=== PATIENT | female | born 2000 | race Caucasian/White ===

== ENCOUNTER 2021-09-18 13:20 | Emergency (ER) | payer OTHER, SELFPAY ==
--- NOTE | ~2021-09-18 | CT_ITS ---
EXAMINATION: CT abdomen pelvis w con DATE: 09/18/2021 15:17 INDICATION: RUQ pain, vomiting x1 month TECHNIQUE: Computed tomography (CT) of the abdomen and pelvis was performed with 100 mL Omnipaque-350 intravenous contrast. Automated exposure control and iterative reconstruction technique were employe d. The dose-length product was 1426.87 mGy-cm. COMPARISON: None. FINDINGS: Lower thorax: Bibasilar atelectasis. Liver: Enlarged liver. Biliary/Gallbladder: Gallbladder is normal. No bile duct dilation. Pancreas: No mass or duct dilation. Spleen: Normal. Adrenals:No mass. Kidneys: No mass, stone, or hydronephrosis. GI tract: No small or large bowel dilation. Normal appendix. Mesentery/Peritoneum: No ascites, mass, or free air. Retroperitoneum: No mass. Pelvis: Pelvic organs are within normal limits. Soft Tissues: Soft tissues and body wall unremarkable. Bones: No acute osseous finding. IMPRESSION: Hepatomegaly. Otherwise no acute abdominopelvic process detected. Reviewed, dictated and finalized at location K.
[2021-09-18 13:29] VITALS: BP 135/79; PULSE 74; RESP 16; TEMP 36.9; O2SAT 100
--- NOTE | 2021-09-18 13:48 | ED.NAVMDI ---
HPI - Nausea/Vomiting/Diarrhea General Chief complaint: Nausea/Vomiting/Diarrhea Stated complaint: Nausea and vomiting, dizziness Time Seen by Provider: 09/18/21 13:22 History of Present Illness HPI Narrative: 21-year-old female presented the emergency room for evaluation of nausea and vomiting x1 month. Patient states that she becomes nauseated following eating every meal. Also complains of mild right upper quadrant pain. Patient was seen at her primary care physician office last week, and has a barium swallow and right upper quadrant ultrasound ordered. Patient denies any diarrhea or constipation. Related Data Home Medications Medication Instructions Recorded Confirmed Xolair 09/18/21 Allergies Allergy/AdvReac Type Severity Reaction Status Date / Time No Known Allergies Allergy Verified 09/18/21 13:32 Review of Systems Review of Systems: CONSTITUTIONAL: Denies fever, chills, or sweats. EYES: Denies visual changes, redness, or discharge. ENT: Denies rhinorrhea, congestion, sore throat, or otalgia. CARDIOVASCULAR: Denies chest pain, palpitations, or edema. RESPIRATORY: Denies cough or dyspnea. GASTROINTESTINAL: Reports abdominal pain and nausea GENITOURINARY: Denies dysuria or hematuria. SKIN: Denies rash or itching. MUSCULOSKELETAL: Denies back pain, joint pain, or myalgia. NEUROLOGIC: Denies headache, numbness, dizziness, or weakness. PSYCHIATRIC: Denies anxiety or depression. Exam Narrative: GENERAL: Well-appearing, well-nourished, no physical limitations, and in no acute distress. HEAD: Normocephalic, atraumatic. EYES: Conjunctivae normal, PERRLA and EOMI. CHEST: Clear to auscultation. No respiratory distress. No wheezes rales or rhonchi. No tenderness. HEART: Regular rate and rhythm. No murmur heard. Normal peripheral pulses. ABDOMEN: Soft, right upper quadrant tenderness, morbid obesity, normal active bowel sounds. BACK: No CVA tenderness EXTREMITIES: Normal range of motion. No edema. No clubbing or cyanosis SKIN: Warm, dry, no rash. No noted wounds NEURO: No focal deficits. Alert and oriented x3. MAEW. CN's II-XI intact bilaterally, normal gait PSYCH: Cooperative. Normal mood and affect. Course Vital Signs Vital signs: Vital Signs Temperature 36.9 C 09/18/21 13:29 Pulse Rate 74 09/18/21 13:29 Respiratory Rate 16 09/18/21 13:29 Blood Pressure 135/79 09/18/21 13:29 Pulse Oximetry 100 09/18/21 13:29 Oxygen Delivery Room Air 09/18/21 13:29 Temperature 36.9 C 09/18/21 13:29 Pulse Rate 74 09/18/21 13:29 Respiratory Rate 16 09/18/21 13:29 Blood Pressure 135/79 09/18/21 13:29 Pulse Oximetry 100 09/18/21 13:29 Oxygen Delivery Room Air 09/18/21 13:29 MDM - Nausea/Vomiting/Diarrhea MDM Narrative Medical decision making narrative: 21-year-old female presented the emergency room for evaluation of nausea and vomiting for approximately 1 month. Patient had already seen her primary care physician and has a outpatient abdominal ultrasound and barium swallow test scheduled. CT scan of the abdomen showed no acute intra-abdominal abnormalities. CBC and CMP were unremarkable. There is bacteria and hematuria on her urine studies patient likely has a urinary tract infection. Will have patient follow-up with GI for further evaluation. Lab Data Result diagrams: 09/18/21 14:00 09/18/21 14:31 Labs: Lab Results 09/18/21 09/18/21 09/18/21 Range/Units 13:57 14:00 14:31 WBC 7.5 (4.5-10.0) K/mm3 RBC 4.70 (4.2-5.4) M/mm3 Hgb 14.2 (12.0-15.0) g/dL Hct 42.7 (37.0-47.0) % MCV 90.9 (80-100) fl MCH 30.2 (26-34) pg MCHC 33.3 (32-36) g/dl RDW 13.0 (11.5-14.5) % Plt Count 372 (150-375) k/mm3 MPV 10.5 H (7.4-10.4) fl Immature Gran % (Auto) 0.3 (0-0.5) % Neut % (Auto) 68.6 (45.5-73.1) % Lymph % (Auto) 23.0 (18.3-44.2) % [place] % (Auto) 6.6 (2.6-8.5) % Eos % (Auto) 0.8 (0-
[2021-09-18] MEDS: SODIUM CHLORIDE 0.9% IV 1,000 ML 999 ML IV CONT (14:05)
[2021-09-18] MEDS: ONDANSETRON INJ 4 MG/2 ML VIAL IV PUSH (14:05)
[2021-09-18 14:13] LABS: Basophils Absolute Auto 0.1 K/mm3 (0.0-0.1); Basophils Percent Auto 0.7 % (0.2-1.2); Eosinophils Absolute Auto 0.1 K/mm3 (0-0.3); Eosinophils Percent Auto 0.8 % (0-4.4); Hematocrit 42.7 % (37.0-47.0); Hemoglobin 14.2 g/dL (12.0-15.0); Immature Granulocyte Absolute 0.02 K/mm3 (0.00-0.031); Immature Granulocyte Percent A 0.3 % (0-0.5); Lymphocytes Absolute Auto 1.71 K/mm3 (0.9-3.2); Mean Corpuscular HGB Conc 33.3 g/dl (32-36); Mean Corpuscular Hemoglobin 30.2 pg (26-34); Mean Corpuscular Volume 90.9 fl (80-100); Mean Platelet Volume 10.5 fl (7.4-10.4); Monocytes Absolute Auto 0.5 K/mm3 (0.1-0.6); Monocytes Percent Auto 6.6 % (2.6-8.5); Neutrophils Absolute Auto 5.1 K/mm3 (1.3-6.7); Neutrophils Percent Auto 68.6 % (45.5-73.1); Platelet Count Result 372 k/mm3 (150-375); White Blood Count 7.5 K/mm3 (4.5-10.0)
[2021-09-18 14:15] LABS: Appearance Urine Clear (Clear); Bilirubin Urine Negative (Negative); Blood Urine 2+ (Negative); Color Urine Yellow (Yellow); Glucose Urine UA Negative (Negative); Ketones Urine Negative (Negative); Leukocyte Esterase Ur 2+ LEU/UL (Negative); Nitrate Urine Negative (Negative); Protein Urine Negative (Negative); Specific Grav Ur 1.025 (1.001-1.035)
[2021-09-18 14:24] LABS: Bacteria Urine Trace /hpf; Mucus Urine Few /lpf; Squamous Epithelial Cell Urine Few /hpf (Few); WBC Urine 21-30 /hpf
[2021-09-18 14:25] LABS: Add Urine Microscopic? YES
[2021-09-18 15:05] LABS: Alanine Aminotransferase 20 U/L (6-35); Albumin Level 4.3 g/dL (3.5-5.1); Alkaline Phosphatase 55 U/L (38-126); Anion Gap 7 mmol/L (8-16); Aspartate Amino Transferase 19 U/L (14-36); Bilirubin,Total 0.5 mg/dL (0.2-1.3); Blood Urea Nitrogen 6 mg/dL (7-17); Calcium 8.4 mg/dL (8.4-10.2); Carbon Dioxide 26 mmol/L (22-30); Chloride 106 mmol/L (98-107); Estimated CRCL calculation 113 ml/min; Estimated Glomerular Filt Rate > 60; Glucose 90 mg/dL (65-110); Lipase 40 U/L (23-300); Potassium 3.9 mmol/L (3.4-5.0); Sodium 139 mmol/L (137-145)
[2021-09-18 15:48] VITALS: BP 120/75; PULSE 59; RESP 18; O2SAT 100
== END 2021-09-18 15:50 | disposition home or self-care (01) ==
PROVIDERS: Emergency Medicine; Emergency Provider Nurse Practitioner Family; PCP Physician Assistant
DX: N39.0 Urinary tract infection, site not specified (principal); R10.9 Unspecified abdominal pain; R11.0 Nausea
CPT/HCPCS: 36415; 74177; 80053; 81001; 81025; 83690; 85025; 87086; 87088; 96361; 96374; 99284; J2405; J7030; Q9967

== ENCOUNTER 2021-10-01 10:33 | Outpatient (CLI) | payer OTHER, SELFPAY ==
--- NOTE | ~2021-10-01 | XR_ITS ---
EXAMINATION: XR UGIAC wo kub DATE: 10/01/2021 11:32 INDICATION: Nausea with vomiting TECHNIQUE: The patient drank thick barium, gas-producing crystals, and thin barium. A total of 525 fl uoroscopic images of the esophagus, stomach, and proximal small bowel were obtained. Fluoroscopy expo sure time was 1.1 minutes. COMPARISON: None. FINDINGS: The esophagus is normal without mass or stricture. Esophageal motility is normal. There is no hiatal hernia. There was no gastroesophageal reflux with provocative maneuvers. The stomach and pr oximal small bowel are normal. IMPRESSION: 1. Normal upper GI study. Reviewed, dictated and finalized at location A. IMPRESSION: 1. Normal upper GI study.
== END 2021-10-01 10:34 | disposition home or self-care (01) ==
PROVIDERS: PCP Physician Assistant; Visit Provider Physician Assistant
DX: R11.2 Nausea with vomiting, unspecified (principal)
CPT/HCPCS: 74246

== ENCOUNTER → 2021-10-08 08:52 | Outpatient (CLI) | payer OTHER, SELFPAY ==
--- NOTE | ~2021-10-08 | US_ITS ---
EXAMINATION: US right upper quadrant DATE: 10/08/2021 09:25 INDICATION: Nausea and vomiting. TECHNIQUE: Multiple grayscale and Doppler ultrasound images of the abdomen were obtained. COMPARISON: CT abdomen and pelvis 09/18/2021 FINDINGS: The visualized portions of the head of the pancreas are normal. There is diffuse hepatic st eatosis. There is normal flow in main portal vein. The gallbladder is normal in size. No gallstones o r gallbladder wall thickening. There was no sonographic Ramos sign. The common duct is normal and me asures 4 mm. IMPRESSION: 1. Diffuse hepatic steatosis. Reviewed, dictated and finalized at location A.
== END ==
PROVIDERS: PCP Physician Assistant; Visit Provider Physician Assistant
DX: R11.2 Nausea with vomiting, unspecified (principal); K76.0 Fatty (change of) liver, not elsewhere classified
CPT/HCPCS: 76705

== ENCOUNTER 2021-10-24 12:49 | Outpatient (CLI) | payer OTHER, SELFPAY ==
--- NOTE | ~2021-10-24 | NM_ITS ---
EXAMINATION: NM hepatobiliary wo pharm DATE: 10/24/2021 15:53 INDICATION: Nausea and vomiting. COMPARISON: Ultrasound abdomen 10/08/2021 TECHNIQUE: 4.8 mCi Tc-99m mebrofenin (Choletec) was administered intravenously. Scintigraphic images of the abdomen were obtained for one hour. Then, the patient drank 8 oz Ensure, and imaging was cont inued for 60 minutes. FINDINGS: There is normal clearance of radiotracer from the blood pool. There is homogeneous tracer u ptake by the liver. Activity progresses to the bowel and gallbladder. Gallbladder ejection fraction (GBEF) was 27%. Note that with this technique, normal GBEF >= 33%. IMPRESSION: 1. Low gallbladder ejection fraction, consistent with gallbladder dysfunction and/or chronic cholecy stitis. Reviewed, dictated and finalized at location A. IMPRESSION: 1. Low gallbladder ejection fraction, consistent with gallbladder dysfunction and/or chronic cholecystitis.
== END 2021-10-24 12:50 | disposition home or self-care (01) ==
PROVIDERS: PCP Physician Assistant; Visit Provider Physician Assistant
DX: R11.2 Nausea with vomiting, unspecified (principal)
CPT/HCPCS: 78226; A9537

== ENCOUNTER 2021-11-12 07:53 | Outpatient (CLI) | payer OTHER, SELFPAY ==
[2021-11-12 08:54] LABS: Alanine Aminotransferase 23 U/L (6-35); Albumin Level 4.8 g/dL (3.5-5.1); Alkaline Phosphatase 49 U/L (38-126); Amylase 56 U/L (30-110); Aspartate Amino Transferase 26 U/L (14-36); Bilirubin,Total 0.7 mg/dL (0.2-1.3); Lipase 40 U/L (23-300)
== END 2021-11-12 07:54 | disposition home or self-care (01) ==
LOC: ANHSURGERY 07:56
PROVIDERS: PCP Physician Assistant; Visit Provider Surgery
DX: Z01.812 Encounter for preprocedural laboratory examination (principal); K81.1 Chronic cholecystitis
CPT/HCPCS: 36415; 80076; 82150; 83690; 86850; 86900; 86901

== ENCOUNTER 2021-11-13 02:18 | Day surgery (SDC) | payer OTHER, SELFPAY ==
[2021-11-06 15:43] VITALS: BMI 42.5
--- NOTE | 2021-11-06 15:53 | PC.NURSE ---
Report to the Outpatient Waiting Room, entrance under the green pavilion located off [facility], at time 10:30 on date 11/13/21. OR Time: 12:30. Time changes happen often and if your time is changed the preop area will call you the afternoon before. - You and your visitor will be asked to self-screen and do not enter if you have any COVID symptoms. - Only one visitor and NO children visitors are allowed at this time. - The patient visitor is requested to leave or wait in car when not with patient due to restrictions. - A mask is required within the hospital. Patients may have clear liquids (water, carbonated beverages, clear teas, apple juice) until 3 hours prior to surgery (9:30) with a maximum of 20 ounces. - No food from midnight until time of surgery Take the following medications with a SIP of water the morning of surgery: NONE Medications to discontinue per physician: N/A Date to take last dose: N/A Please no make-up, nail sinhala, hairspray, perfume, deodorant, or body powder the day of surgery. No jewelry (including any body piercings) or valuables the day of surgery, leave them at home. Please take a shower or bath the night before, or the morning of, surgery with an antibacterial soap (HIBICLENS). Wear comfortable, loose fitting clothing. - Jewelry must be removed prior to entering the operating room. Rings and piercings that are not removed may be cut off. - The hospital will not accept responsibility for valuables. - Please leave all valuables, including medications, at home the day of surgery. If you are going home after surgery, a licensed skidder driver must drive you home. - NO public transportation without another adult. - We recommend that an adult stay with you for 24 hours following discharge. - We also recommend that you do not drive, make important decision, drink alcoholic beverages, or take any drugs that were not prescribed by your health care provider for at least 24 hours after your discharge time. Follow any additional instructions given to you from your surgeon. If you or anyone in your household have experienced Covid symptoms in the past week, please notify your surgeon or the nurse liaison at the phone number below for possible testing. Telephone instructions given to PT - KAMI BARAJAS and asked if any additional questions and then verbalized understanding. Patient advised to call surgeon office or pre surgery nurse liaison [phone] if any additional questions.
--- NOTE | 2021-11-12 12:29 | P.PNAN_ITS ---
Anes - Initial Pre Proc Eval Procedure: Operation Date: 11/13/21 11:15 Proposed Procedures p Laparoscopic Cholecystectomy - Anuel Pacheco MD Date/Time: 11/12/21 12:29 Surgeon: Anuel Pacheco MD Pre Op Diagnosis: chronic cholecystitis Patient Data Age: 21 Gender: F Height: 1.6 m Weight: 108.86 kg Allergies Allergy/AdvReac Type Severity Reaction Status Date / Time No Known Allergies Allergy Verified 11/06/21 15:42 Home Medications Medication Instructions Recorded Confirmed Type levonorgestrel 17.5 mcg/24 hrs 1 device intrauterine ONCE 10/30/21 11/06/21 History (5yrs) 19.5mg intrauterine device (Kyleena) ondansetron 4 mg disintegrating 4 mg PO Q8H 10/30/21 11/06/21 History tablet omalizumab 150 mg/mL subcutaneous 150 mg subcut ONCE 11/06/21 11/06/21 History syringe (Xolair) Patient hx anesthesia problems: none Family hx anesthesia problems: none Results Review: All pre-operative results and documents have been reviewed as part of the pre- operative evaluation. [facility] Past Medical History Medical History (Updated 11/12/21 @ 12:30 by Harris Langford MD) Anxiety Depression Morbid obesity with BMI of 40.0-44.9, adult Surgical History Surgical History H/O wisdom tooth extraction Family History Family History Other Diabetes mellitus Heart disease Hypertension Social History Social History Smoking status: Current every day smoker Tobacco type: e-cigarettes/vaping Alcohol intake: current Drinks per week: 5 Alcohol use details: Occasionally Substance use: current Substance use type: marijuana Living arrangements: with roommate(s) Spiritual care concerns: No Anes - Eval Final PreProcedure Day of Procedure 11/12/21 12:29 Patient weight: morbidly obese Heart: regular rate and rhythm Lungs: clear to auscultation and normal air movement Airway: Mallampati scale class II Neurological: alert and oriented Last oral intake: >/= 8 hours ASA classification: III Emergent: no Anesthetic plan: proceed Anesthesia type and monitoring: general ETT Results Review: All pre-operative results and documents have been reviewed as part of the pre- operative evaluation. Informed Consent: The patient's anesthetic plan and its attendant risks and benefits were discussed with the patient/family/POA. Questions were solicited and answers provided to the satisfaction of the patient/family/POA.
[2021-11-13] VITALS (11 sets, daily range): BP systolic 103–123; BP diastolic 60–81; PULSE 67–101; RESP 14–20; TEMP 36.3–36.6; O2SAT 96–100
[2021-11-13] MEDS: LACTATED RINGERS 1,000 ML 30 ML IV CONT ×3 (09:30→15:00)
[2021-11-13] MEDS: KETOROLAC 15 MG/ML VIAL (*BKC) IV PUSH (09:42)
[2021-11-13] MEDS: ACETAMINOPHEN 500 MG TABLET 1000 MG PO (09:42)
--- NOTE | 2021-11-13 09:56 | WPDHPUPDATE1 ---
History and Physical Update Update Date/Time: 11/13/21 09:56 History and Physical has been reviewed, including an updated exam of the patient. There are NO changes in the patient's condition. Risks, benefits, and alternatives have been discussed and questions answered. Patient agrees to proceed with procedure.
[2021-11-13] MEDS: SCOPOLAMINE 1.5 MG PATCH TRANSDERM (10:13)
[2021-11-13] MEDS: ceFAZolin 2 GM/D5W 50 ML 2 GM/50 ML BAG IVPB (11:42)
[2021-11-13] MEDS: BUPIVACAINE/EPINEPHRINE 0.25% 50 ML VIAL INFILTRATE (12:32)
--- NOTE | 2021-11-13 12:42 | P.OP_ITS ---
Procedure Note - Detailed Date of Procedure 11/13/21 Pre-op Diagnosis chronic cholecystitis Post-op Diagnosis Same Procedure Performed Laparoscopic cholecystectomy Surgeon Anuel Pacheco MD Rib Sawyer [facility] [place] [facility] Anesthesia General and Local (0.25% Marcaine with epinephrine) Indications Patient has had postprandial right upper quadrant abdominal pain with nausea specially after fatty meals. She had a negative gallbladder ultrasound but her HIDA scan showed a low gallbladder ejection fraction. She is taken to surgery now for laparoscopic cholecystectomy. Findings Mild chronic inflammation was noted. No stones were appreciated. No biliary ductal dilatation or liver abnormalities were noted. Description of Procedure The patient was taken to surgery and induced into general anesthesia. The abdomen is prepped draped. Trocars were placed in the usual fashion using applied Medical optical trocars and local anesthesia. The gallbladder was decompressed with a laparoscopic aspirator. The cholecystotomy was closed with a Vicryl endoloop. The gallbladder was then retracted anterosuperiorly. Dissection was carried out in the cholecystohepatic triangle. The cystic duct and cystic artery were dissected out very clearly. Cystic artery was very diminutive and was cauterized and divided. The gallbladder was dissected off the liver at its lower 3rd. Critical view was achieved. We securely clipped and divided the cystic duct. The gallbladder was then is dissected off the liver and freed completely. It was placed in an Endo-Catch bag and retrieved through the 10 11 epigastric trocar site. The epigastric trocar was then replaced. I reviewed the gallbladder fossa and right upper quadrant. Some additional cautery on the gallbladder fossa was carried out. I then irrigated and suctioned the right upper quadrant. All looked good with no evidence of bleeding or bile leakage. We then evacuated CO2 and removed the trocar sleeves. Skin wounds were closed with subcuticular 4-0 Monocryl skin suture. The wounds were dressed with Exofin surgical adhesive. Patient was awakened and taken to recovery in good condition. Sponge and needle counts were correct x2. Estimated Blood Loss -5 Drains No Packing No Pathology Yes (Gallbladder) Complications No immediate complications Condition Stable Disposition PACU [facility] Billing Surgery - Charge Forward: Surgery Billing (Laparoscopic cholecystectomy)
[2021-11-13] MEDS: fentaNYL CITRATE INJ (*CRX) 100 MCG/2 ML VIAL 25 MCG IV PUSH ×2 (13:09→13:39)
--- NOTE | 2021-11-13 13:23 | SUR.PHASEI ---
1322: Simple mask removed.
[2021-11-13] MEDS: ONDANSETRON INJ 4 MG/2 ML VIAL IV PUSH (13:30)
[2021-11-13] MEDS: oxyCODONE HCL (*CRX) 5 MG TAB IR PO (14:53)
[2021-11-13] MEDS: HALOPERIDOL LACTATE 5 MG/ML VIAL 1 MG IV PUSH (15:40)
== END 2021-11-13 16:10 | disposition home or self-care (01) ==
PROVIDERS: PCP Physician Assistant; Visit Provider Surgery
PROC: 0FT44ZZ Resection of Gallbladder, Percutaneous Endoscopic Approach (ICD-10-PCS; CPT 47562; principal; 2021-11-13 11:15)
DX: K81.1 Chronic cholecystitis (principal); F41.9 Anxiety disorder, unspecified; F32.A Depression, unspecified; E66.01 Morbid (severe) obesity due to excess calories; Z68.41 Body mass index [BMI] 40.0-44.9, adult; F17.290 Nicotine dependence, other tobacco product, uncomplicated; F12.90 Cannabis use, unspecified, uncomplicated
CPT/HCPCS: 47562; 36415; 80076; 82150; 83690; 86850; 86900; 86901; 88304; A9270; C1713; J0330; J0690; J1630; J1885; J2250; J2270; J2405; J2704; J2710; J3010; J7120

== ENCOUNTER 2021-12-05 14:01 | Emergency (ER) | payer OTHER, SELFPAY ==
[2021-12-05 14:13] VITALS: BP 117/76; PULSE 88; RESP 18; TEMP 36.7; O2SAT 99
--- NOTE | 2021-12-05 15:12 | ED.URI ---
HPI - URI/Sore Throat General Chief Complaint: Upper Respiratory Infection Stated Complaint: Cough,Congestion,Headache Source: patient Mode of arrival: ambulatory History of Present Illness HPI Narrative: This is a 21-year-old female who presented to our urgent care with complaints of a cough, sore throat, fever of 100-100.2 she has been taking ibuprofen and Tylenol at home to relieve her symptoms and also has complained about a headache and stuffiness that all started on Friday. The patient denies SOB, CP, palpitation, extremity numbness, lightheadedness, dizziness, constipation, diarrhea, chills, or fever. Related Data Home Medications Medication Instructions Recorded Confirmed levonorgestrel 17.5 mcg/24 hrs 1 device intrauterine ONCE 10/30/21 12/05/21 (5yrs) 19.5mg intrauterine device (Kyleena) Allergies Allergy/AdvReac Type Severity Reaction Status Date / Time No Known Allergies Allergy Verified 12/05/21 14:19 Review of Systems Review of Systems: A 14 organ system Review of Systems was performed and pertinent positives included in the HPI, otherwise remaining ROS is negative. [facility] Past Medical History Medical History (Updated 12/05/21 @ 15:06 by SIA Rico) Anxiety Depression Morbid obesity with BMI of 40.0-44.9, adult Surgical History Surgical History (Updated 11/29/21 @ 09:12 by ANGELINA Mccoy) H/O wisdom tooth extraction Hx laparoscopic cholecystectomy 11/13/21 Family History Family History Other Diabetes mellitus Heart disease Hypertension Social History Social History Smoking status: Current every day smoker Tobacco type: e-cigarettes/vaping Alcohol intake: current Drinks per week: 5 Alcohol use details: Occasionally Substance use: current Substance use type: marijuana Spiritual care concerns: No Exam Narrative: GENERAL: This is a well-nourished, well-developed patient, in no apparent distress. HEAD: normocephalic, atraumatic. EYES: PERRL. Sclera clear/white. Vision is grossly intact. EARS: External ears normal, auditory canals clear and without drainage, TMs normal without perforation. Hearing grossly intact. NOSE: External nose normal with no obvious nasal discharge, nares without redness, no rhinorrhea. THROAT: Mucous membranes moist, posterior pharynx clear. NECK: Neck supple, non-tender without lymphadenopathy, masses or thyromegaly. CARDIOVASCULAR: Regular rate and rhythm without murmurs, gallops, or rubs. RESPIRATORY: Clear to auscultation. Breath sounds equal bilaterally. No wheezes, rales, or rhonchi. GASTROINTESTINAL: Abdomen soft, non-tender, nondistended. Bowel sounds are active. No hepato-splenomegaly, or palpable masses. No guarding. SKIN: warm, intact with no suspicious lesions or rash, good texture and turgor. NEURO: awake, alert, and oriented to person, place and time. There were no obvious focal neurologic abnormalities. EXTREMITIES: Normal range of motion. No edema. No calf tenderness. Course Course Emergency Course: Patient tested positive for influenza A she will be discharged with Tamiflu, Tessalon Perles, and guaifenesin. Level of Care: Express Care Visit Vital Signs Vital signs: Vital Signs Temperature 98.0 F 12/05/21 14:13 Pulse Rate 88 12/05/21 14:13 Respiratory Rate 18 12/05/21 14:13 Blood Pressure 117/76 12/05/21 14:13 Pulse Oximetry 99 12/05/21 14:13 Oxygen Delivery Room Air 12/05/21 14:13 Temperature 98.0 F 12/05/21 14:13 Pulse Rate 88 12/05/21 14:13 Respiratory Rate 18 12/05/21 14:13 Blood Pressure 117/76 12/05/21 14:13 Pulse Oximetry 99 12/05/21 14:13 Oxygen Delivery Room Air 12/05/21 14:13 MDM - URI/Sore Throat Lab Data Labs: Influenza A Screen Positive Reference Ran
== END 2021-12-05 15:10 | disposition home or self-care (01) ==
PROVIDERS: Emergency Provider Nurse Practitioner; PCP Physician Assistant
DX: J10.1 Influenza due to other identified influenza virus with other respiratory manifestations (principal); F17.290 Nicotine dependence, other tobacco product, uncomplicated; E66.01 Morbid (severe) obesity due to excess calories; Z68.35 Body mass index [BMI] 35.0-35.9, adult
CPT/HCPCS: 87804; 99213; G0463

== ENCOUNTER 2022-04-20 10:42 | Outpatient (CLI) | payer OTHER, SELFPAY ==
--- NOTE | ~2022-04-20 | US_ITS ---
Pelvic ultrasound. Clinical History: Pelvic pain, IUD Technique: Realtime transabdominal and transvaginal scanning of the pelvis was performed. Color flow Doppler and Doppler spectral analysis were performed. Findings: The uterus is anteverted. The endometrial stripe has a thickness of 3 mm. IUD is in satisf actory position. No focal mass is identified. The right ovary measures 3.4 x 1.7 x 2.5 cm. No significant right ovarian or adnexal mass is seen. The left ovary is not visualized. No significant left ovarian or adnexal mass is seen. There is no evidence of free fluid in the cul de sac. Impression: IUD in satisfactory position. Left ovary not visualized. Reviewed, dictated and finalized at [facility]. MIC TILE INSTALLER Impression: IUD in satisfactory position. Left ovary not visualized.
== END 2022-04-20 10:43 ==
LOC: MICIMG 10:46
PROVIDERS: PCP Obstetrics & Gynecology; Visit Provider Obstetrics & Gynecology
DX: R10.31 Right lower quadrant pain (principal); Z97.5 Presence of (intrauterine) contraceptive device
CPT/HCPCS: 76830

== ENCOUNTER 2022-06-03 12:44 | Emergency (ER) | payer OTHER, SELFPAY ==
[2022-06-03 12:54] VITALS: BP 130/83; PULSE 84; RESP 18; TEMP 36.8; O2SAT 100
--- NOTE | 2022-06-03 12:56 | ED.ABDPAIN ---
HPI - Abdominal Pain General Stated Complaint: nausea,diarrhea Time Seen by Provider: 06/03/22 12:57 Source: patient and RN notes reviewed Mode of arrival: ambulatory Limitations: no limitations History of Present Illness HPI narrative: 22 y/o female presented for c/o n/v/d since this morning. Endorses 3 or 4 episodes vomiting, 2 or 3 episodes of diarrhea. States the nausea persists but she feels that the vomiting has subsided. States she ate at a wedding yesterday and is concerned for food poisoning. States she planned to let symptoms run the course, but work is requesting note for an excused absence. Denies worsening abdominal pain from baseline (hx PCOS), hematochezia, hematemesis, fever or chills. Denies sick contacts. Able to keep water down today, has not attempted to eat. Hx lap flores 11/2021 Related Data Home Medications Medication Instructions Recorded Confirmed levonorgestrel 17.5 mcg/24 hrs 1 device intrauterine ONCE 10/30/21 12/05/21 (5yrs) 19.5mg intrauterine device (Kyleena) Vitamin B-12 1,000 mcg DAILY 06/03/22 06/03/22 inositol 500 mg DAILY 06/03/22 06/03/22 metformin 500 mg tablet 500 mg DAILY 06/03/22 06/03/22 Allergies Allergy/AdvReac Type Severity Reaction Status Date / Time No Known Allergies Allergy Verified 06/03/22 12:58 Review of Systems Review of Systems: CONSTITUTIONAL: Denies body aches, fever, chills ENT: Denies rhinorrhea, congestion CARDIOVASCULAR: Denies chest pain, palpitations, or edema. RESPIRATORY: Denies cough or dyspnea. GASTROINTESTINAL: Endorses nausea, vomiting, diarrhea. Denies abdominal pain, hematochezia, melena, hematemesis GENITOURINARY: Denies dysuria, hematuria, or CVA tenderness. SKIN: Denies rash, itching, or wounds. MUSCULOSKELETAL: Denies back pain, joint pain, or myalgia. NEUROLOGIC: Denies headache, numbness, tingling, or weakness. All systems reviewed & are unremarkable except as noted in HPI and below PMFSH Past Medical History Medical History Anxiety Depression Morbid obesity with BMI of 40.0-44.9, adult Surgical History Surgical History H/O wisdom tooth extraction Hx laparoscopic cholecystectomy 11/13/21 Family History Family History Other Diabetes mellitus Heart disease Hypertension Social History Social History Smoking status: Current every day smoker Tobacco type: e-cigarettes/vaping Alcohol intake: current Drinks per week: 5 Alcohol use details: Occasionally Substance use: current Substance use type: marijuana Living arrangements: with roommate(s) Spiritual care concerns: No Comments At time of signature, I have reviewed and agree with nursing past medical, surgical, social and family history unless otherwise noted. Please see nursing chart for further information. There is no relevant family history pertinent to the presenting complaint Exam Narrative: GENERAL: mildly ill-appearing, in no acute distress. EYES: EOMI. Conjunctivae normal. ENT: Mucous membranes pink and moist. CHEST: No respiratory distress. Clear to auscultation. HEART: Regular rate and rhythm. No murmur appreciated. Normal peripheral pulses. ABDOMEN: abd soft, nondistended, normal active bowel sounds. Tender abdomen to lower quadrants she states r/t PCOS. No guarding, rebound tenderness, asymmetry EXTREMITIES: Normal range of motion. No edema. SKIN: Warm, dry, no rash. Capillary refill normal. Normal skin turgor. NEURO: No focal deficits. Alert and oriented x3. PSYCH: Normal affect. Course Course Emergency Course: Patient is aware of diagnosis, understands and agrees to treatment plan. Anticipatory guidance given. Patient agrees to follow-up as directed and is aware of reasons to seek care at the e
== END 2022-06-03 13:08 | disposition home or self-care (01) ==
PROVIDERS: Emergency Provider Nurse Practitioner Family; PCP Physician Assistant
DX: R11.2 Nausea with vomiting, unspecified (principal); R19.7 Diarrhea, unspecified; E28.2 Polycystic ovarian syndrome; E66.01 Morbid (severe) obesity due to excess calories; Z68.37 Body mass index [BMI] 37.0-37.9, adult; F17.290 Nicotine dependence, other tobacco product, uncomplicated; F12.90 Cannabis use, unspecified, uncomplicated
CPT/HCPCS: 99211; G0463

== ENCOUNTER 2023-04-02 14:04 | Emergency (ER) | payer MEDICAID, SELFPAY ==
[2023-04-02 14:11] VITALS: BP 114/82; PULSE 95; RESP 16; TEMP 37.1; O2SAT 99
--- NOTE | 2023-04-02 15:50 | ED.NAVMDI ---
HPI - Nausea/Vomiting/Diarrhea General Chief complaint: Nausea/Vomiting/Diarrhea Stated complaint: vomiting/14 weeks Time Seen by Provider: 04/02/23 15:47 Source: patient and family Mode of arrival: ambulatory Limitations: no limitations History of Present Illness HPI Narrative: 22 years old white female, 14 weeks presents with intermittent nausea and vomiting over the last 48 hours. She denies any diarrhea, fever, chills, abdominal pain, vaginal bleeding or discharge Related Data Home Medications Medication Instructions Recorded Confirmed levonorgestrel 17.5 mcg/24 hrs 1 device intrauterine ONCE 10/30/21 06/03/22 (5yrs) 19.5mg intrauterine device (Kyleena) Vitamin B-12 1,000 mcg DAILY 06/03/22 06/03/22 inositol 500 mg DAILY 06/03/22 06/03/22 metformin 500 mg tablet 500 mg DAILY 06/03/22 06/03/22 Allergies Allergy/AdvReac Type Severity Reaction Status Date / Time No Known Allergies Allergy Verified 06/03/22 12:58 Review of Systems Review of Systems: All systems reviewed & are unremarkable except as noted in HPI and below PMFSH Past Medical History Medical History Anxiety Depression Morbid obesity with BMI of 40.0-44.9, adult Surgical History Surgical History H/O wisdom tooth extraction Hx laparoscopic cholecystectomy 11/13/21 Family History Family History Other Diabetes mellitus Heart disease Hypertension Social History Social History Smoking status: Current every day smoker Tobacco type: e-cigarettes/vaping Alcohol intake: current Drinks per week: 5 Alcohol use details: Occasionally Substance use: current Substance use type: marijuana Living arrangements: with roommate(s) Spiritual care concerns: No Exam Narrative: General appearance: Well-developed, well-nourished Skin: Normal color Head: Normocephalic, nontraumatic Eyes: Clear conjunctiva ENT: Oropharynx normal, ears normal, nose normal Neck: Supple, nontender Chest and respiratory: Airway patent, no respiratory distress, no accessory muscle use Heart: Regular rate/rhythm Abdomen: Soft, nontender, no organomegaly, quiet bowel sounds Vascular: Normal peripheral pulses, normal capillary refill. Musculoskeletal: Normal range of motion, nontender back Neurologic: Alert and oriented ?3, [employer] is normal as tested, no gross motor deficit Course Vital Signs Vital signs: Vital Signs Temperature 37.1 C 04/02/23 14:11 Pulse Rate 95 04/02/23 14:11 Respiratory Rate 16 04/02/23 14:11 Blood Pressure 114/82 04/02/23 14:11 Pulse Oximetry 99 04/02/23 14:11 Oxygen Delivery Room Air 04/02/23 14:11 Temperature 36.6 C 04/02/23 17:00 Pulse Rate 84 04/02/23 17:00 Respiratory Rate 18 04/02/23 17:00 Blood Pressure 119/79 04/02/23 17:00 Pulse Oximetry 100 04/02/23 17:00 Oxygen Delivery Room Air 04/02/23 14:11 MDM - Nausea/Vomiting/Diarrhea MDM Narrative Medical decision making narrative: Patient is 14 weeks , came with nausea and vomiting, blood workup showed leukocytosis, high likely secondary to , urinalysis showed possible urinary tract infection, in the ED patient received 2 L of normal saline, 8 mg of Zofran with remarkable improvement, 1 g of Rocephin IV, discharged on amoxicillin. Differential Diagnosis Differential diagnosis: Likely other (Hyperemesis gravidarum, urinary tract infection, electrolyte imbalance, dehydration) Lab Data
[2023-04-02] MEDS: SODIUM CHLORIDE 0.9% IV 2,000 ML 999 ML IV CONT (15:58)
[2023-04-02] MEDS: ONDANSETRON INJ 4 MG/2 ML VIAL 8 MG IV PUSH (15:58)
[2023-04-02 16:12] LABS: Basophils Percent Auto 0.2 % (0.2-1.2); Eosinophils Percent Auto 0.1 % (0-4.4); Hematocrit 39.7 % (37.0-47.0); Hemoglobin 13.4 g/dL (12.0-15.0); Immature Granulocyte Percent A 0.6 % (0-0.5); Lymphocytes Absolute Auto 1.14 K/mm3 (0.9-3.2); Mean Corpuscular HGB Conc 33.8 g/dl (32-36); Mean Corpuscular Hemoglobin 30.7 pg (26-34); Mean Corpuscular Volume 90.8 fl (80-100); Mean Platelet Volume 10.7 fl (7.4-10.4); Monocytes Absolute Auto 0.5 K/mm3 (0.1-0.6); Monocytes Percent Auto 3.1 % (2.6-8.5); Neutrophils Absolute Auto 14.4 K/mm3 (1.3-6.7); Platelet Count Result 310 k/mm3 (150-375); Red Blood Count 4.37 M/mm3 (4.2-5.4); Red Cell Distribution Width 12.8 % (11.5-14.5); White Blood Count 16.2 K/mm3 (4.5-10.0)
[2023-04-02 16:25] LABS: Alanine Aminotransferase 29 U/L (6-35); Albumin Level 4.5 g/dL (3.5-5.1); Alkaline Phosphatase 46 U/L (38-126); Anion Gap 11 mmol/L (8-16); Aspartate Amino Transferase 32 U/L (14-36); Bilirubin,Total 0.6 mg/dL (0.2-1.3); Blood Urea Nitrogen 8 mg/dL (7-17); Calcium 9.9 mg/dL (8.4-10.2); Carbon Dioxide 19 mmol/L (22-30); Chloride 105 mmol/L (98-107); Estimated CRCL calculation 144 ml/min; Estimated Glomerular Filt Rate > 60; Glucose 104 mg/dL (65-110); Potassium 3.9 mmol/L (3.4-5.0); Sodium 135 mmol/L (137-145)
[2023-04-02 17:00] VITALS: BP 119/79; PULSE 84; RESP 18; TEMP 36.6; O2SAT 100
[2023-04-02] MEDS: BELLADONNA ALK/PHENOB ELIX 10 ML, MAG HYDROX/ALUMINUM HYD/SIMETH 30 ML, LIDOCAINE HCL 2... PO (17:53)
[2023-04-02 18:26] LABS: Appearance Urine Cloudy (Clear); Bacteria Urine Rare /hpf; Bilirubin Urine Negative (Negative); Blood Urine Negative (Negative); Color Urine Yellow (Yellow); Glucose Urine UA Negative (Negative); Ketones Urine 2+ mg/dL (Negative); Leukocyte Esterase Ur 1+ LEU/UL (Negative); Nitrate Urine Negative (Negative); Protein Urine Negative (Negative); RBC Urine 0-2 /hpf (0-2); Specific Grav Ur 1.023 (1.001-1.035); Squamous Epithelial Cell Urine Moderate /hpf (Few); pH Urine 5.5 (5.0-9.0)
[2023-04-02 18:31] LABS: Add Urine Microscopic? YES
[2023-04-02 19:07] VITALS: BP 102/64; PULSE 93; RESP 18; O2SAT 99
== END 2023-04-02 19:22 | disposition home or self-care (01) ==
PROVIDERS: Emergency Provider Emergency Medicine
DX: O21.0 Mild hyperemesis gravidarum (principal); Z3A.14 14 weeks gestation of pregnancy; O23.41 Unspecified infection of urinary tract in pregnancy, first trimester; N39.0 Urinary tract infection, site not specified
CPT/HCPCS: 36415; 80053; 81001; 85025; 87086; 96361; 96374; 96375; 99284; A9270; J0696; J2405; J7030

== ENCOUNTER 2023-04-03 15:24 | Observation (INO) | payer MEDICAID, SELFPAY ==
[2023-04-03 15:45] VITALS: BP 107/64; PULSE 83; RESP 18; TEMP 36.7; O2SAT 99
--- NOTE | 2023-04-03 16:44 | ED.NAVMDI ---
HPI - Nausea/Vomiting/Diarrhea General Chief complaint: Nausea/Vomiting/Diarrhea Stated complaint: nausea and vomitting Time Seen by Provider: 04/03/23 16:43 Source: patient History of Present Illness HPI Narrative: 22 YEARS OLD WHITE FEMALE, 14 WEEKS , 1, PARA 0 0 CAME TO THE EMERGENCY BECOME UNABLE TO KEEP ANYTHING DOWN SINCE LEFT TO THE ED LAST NIGHT. I HAVE SEEN THE PATIENT YESTERDAY AND WAS DISCHARGED WITH DIAGNOSIS OF HYPEREMESIS GRAVIDARUM AND POSSIBLE URINARY TRACT INFECTION PATIENT HAD 1 G OF ROCEPHIN IV PRIOR TO DISCHARGE YESTERDAY AND HAD A PRESCRIPTION OF AMOXICILLIN 875 MG B.I.D.. WHICH SHE DID NOT REFILL. PATIENT REPORT UNABLE TO KEEP ANYTHING DOWN THAT IS WHY SHE IS BACK. SHE DENIES ANY FEVER OR CHILLS OR ABDOMINAL PAIN OR VAGINAL BLEEDING OR DISCHARGE Related Data Home Medications Medication Instructions Recorded Confirmed levonorgestrel 17.5 mcg/24 hrs 1 device intrauterine ONCE 10/30/21 06/03/22 (5yrs) 19.5mg intrauterine device (Kyleena) Vitamin B-12 1,000 mcg DAILY 06/03/22 06/03/22 inositol 500 mg DAILY 06/03/22 06/03/22 metformin 500 mg tablet 500 mg DAILY 06/03/22 06/03/22 Allergies Allergy/AdvReac Type Severity Reaction Status Date / Time No Known Allergies Allergy Verified 06/03/22 12:58 Review of Systems Review of Systems: All systems reviewed & are unremarkable except as noted in HPI and below PMFSH Past Medical History Medical History Anxiety Depression Morbid obesity with BMI of 40.0-44.9, adult Surgical History Surgical History H/O wisdom tooth extraction Hx laparoscopic cholecystectomy 11/13/21 Family History Family History Other Diabetes mellitus Heart disease Hypertension Social History Social History Smoking status: Current every day smoker Tobacco type: e-cigarettes/vaping Alcohol intake: current Drinks per week: 5 Alcohol use details: Occasionally Substance use: current Substance use type: marijuana Living arrangements: with roommate(s) Spiritual care concerns: No Exam Narrative: GENERAL APPEARANCE: WELL-DEVELOPED, WELL-NOURISHED SKIN: NORMAL COLOR HEAD: NORMOCEPHALIC, NONTRAUMATIC EYES: CLEAR CONJUNCTIVA ENT: OROPHARYNX NORMAL, EARS NORMAL, NOSE NORMAL NECK: SUPPLE, NONTENDER CHEST AND RESPIRATORY: AIRWAY PATENT, NO RESPIRATORY DISTRESS, NO ACCESSORY MUSCLE USE HEART: REGULAR RATE/RHYTHM ABDOMEN: SOFT, NONTENDER, NO ORGANOMEGALY, QUIET BOWEL SOUNDS VASCULAR: NORMAL PERIPHERAL PULSES, NORMAL CAPILLARY REFILL. MUSCULOSKELETAL: NORMAL RANGE OF MOTION, NONTENDER BACK NEUROLOGIC: ALERT AND ORIENTED ?3, [employer] COUNSELOR IS NORMAL TESTED, NO GROSS MOTOR DEFICIT Course Consultations Consultation #1: DR VALDIVIA Date: 04/03/23 Time: 21:17 Vital Signs Vital signs: Vital Signs Temperature 36.7 C 04/03/23 15:45 Pulse Rate 83 04/03/23 15:45 Respiratory Rate 18 04/03/23 15:45 Blood Pressure 107/64 04/03/23 15:45 Pulse Oximetry 99 04/03/23 15:45 Oxygen Delivery Room Air 04/03/23 15:45 Temperature 36.7 C 04/03/23 15:45 Pulse Rate 83 04/03/23 15:45 Respiratory Rate 18 04/03/23 15:45 Blood Pressure 107/64 04/03/23 15:45 Pulse Oximetry 99 04/03/23 15:45 Oxygen Delivery Room Air 04/03/23 15:45 MDM - Nausea/Vomiting/Diarrhea MDM Narrative Medical decision making narrative: PATIENT PRESENTS WITH VOMITING DIFFERENTIAL DIAGNOSIS VIRAL GASTROENTERITIS, HYPEREMESIS GRAVIDARUM A, URIN
[2023-04-03] MEDS: SODIUM CHLORIDE 0.9% IV 2,000 ML 999 ML IV CONT (17:18)
[2023-04-03] MEDS: ONDANSETRON INJ 4 MG/2 ML VIAL (17:19)
[2023-04-03 17:27] LABS: Basophils Percent Auto 0.2 % (0.2-1.2); Eosinophils Percent Auto 0.1 % (0-4.4); Hematocrit 35.6 % (37.0-47.0); Hemoglobin 12.1 g/dL (12.0-15.0); Immature Granulocyte Absolute 0.05 K/mm3 (0.00-0.031); Immature Granulocyte Percent A 0.4 % (0-0.5); Lymphocytes Absolute Auto 1.39 K/mm3 (0.9-3.2); Lymphocytes Percent Auto 11.5 % (18.3-44.2); Mean Corpuscular Hemoglobin 30.5 pg (26-34); Mean Corpuscular Volume 89.7 fl (80-100); Mean Platelet Volume 10.7 fl (7.4-10.4); Monocytes Absolute Auto 0.6 K/mm3 (0.1-0.6); Monocytes Percent Auto 5.1 % (2.6-8.5); Neutrophils Percent Auto 82.7 % (45.5-73.1); Platelet Count Result 257 k/mm3 (150-375); Red Blood Count 3.97 M/mm3 (4.2-5.4); White Blood Count 12.1 K/mm3 (4.5-10.0)
[2023-04-03 17:37] LABS: Alanine Aminotransferase 26 U/L (6-35); Albumin Level 4.1 g/dL (3.5-5.1); Alkaline Phosphatase 51 U/L (38-126); Anion Gap 10 mmol/L (8-16); Aspartate Amino Transferase 24 U/L (14-36); Bilirubin,Total 0.5 mg/dL (0.2-1.3); Blood Urea Nitrogen 6 mg/dL (7-17); Calcium 9.2 mg/dL (8.4-10.2); Carbon Dioxide 20 mmol/L (22-30); Chloride 106 mmol/L (98-107); Estimated CRCL calculation 125 ml/min; Estimated Glomerular Filt Rate > 60; Glucose 90 mg/dL (65-110); Potassium 3.6 mmol/L (3.4-5.0); Sodium 136 mmol/L (137-145)
[2023-04-03 19:39] LABS: Influenza A QL RT-PCR Negative (Negative); Influenza B QL RT-PCR Negative (Negative); RSV RNA, RT-PCR Negative (Negative); SARS-CoV-2 RNA PCR Negative (Negative)
[2023-04-03 20:39] LABS: Appearance Urine Cloudy (Clear); Bacteria Urine Rare /hpf; Bilirubin Urine 1+ (Negative); Blood Urine Negative (Negative); Color Urine Dark Yellow (Yellow); Glucose Urine UA Negative (Negative); Ketones Urine 3+ mg/dL (Negative); Leukocyte Esterase Ur 1+ LEU/UL (Negative); Need Manual Microscopic Reviewed; Nitrate Urine Negative (Negative); Non Pathogenic Casts 0-2; Protein Urine Trace mg/dL (Negative); Specific Grav Ur 1.026 (1.001-1.035); Squamous Epithelial Cell Urine Many /hpf (Few); WBC Urine 21-50 /hpf
[2023-04-03 20:41] LABS: Add Urine Microscopic? YES
[2023-04-03] MEDS: ONDANSETRON INJ 4 MG/2 ML VIAL IV PUSH (21:29)
[2023-04-03] MEDS: SODIUM CHLORIDE 0.9% IV 1,000 ML 999 ML IV CONT (21:30)
[2023-04-03 21:31] VITALS: BP 110/70; PULSE 86; RESP 15; O2SAT 100
[2023-04-03 23:35] VITALS: BMI 43.4
[2023-04-03 23:40] VITALS: BP 124/77; PULSE 100; RESP 20; TEMP 37; O2SAT 100
--- NOTE | 2023-04-03 23:41 | ADMGEN ---
This patient, Summer Alejandre, was admitted to 3 [facility] Surg Room 300-01. Patient/family oriented to hospital policies and general routines including ID bracelet, bed and alarms, visiting hours, pain management, procedures, bathroom and other care routines, personal items, smoking policy, room service/diet, and visiting hours. Information on how to activate the Rapid Response Team has been discussed. Patient/Family are encouraged to report perceived risks to care and to ask questions if they do not understand what they are told or what they should do.
[2023-04-04] MEDS: ONDANSETRON INJ 4 MG/2 ML VIAL IV PUSH ×4 (00:07→20:22)
[2023-04-04] MEDS: DEXTROSE 5%/0.45% SOD CHL 1,000 ML 125 ML IV CONT ×2 (00:07→08:30)
[2023-04-04 05:57] VITALS: BP 100/60; PULSE 84; RESP 20; TEMP 36.7; O2SAT 98
[2023-04-04 07:47] VITALS: PULSE 88; O2SAT 97
[2023-04-04 14:00] VITALS: BP 100/62; PULSE 78; RESP 20; TEMP 36.4; O2SAT 100
--- NOTE | 2023-04-04 15:36 | PCCCNOTE ---
On 04/04/23, the student, [Arianna Hendrickson], provided care and completed [facility] documentation on this patient. I have reviewed the student's documentation and agree with the findings.
[2023-04-04] MEDS: DEXTROSE 5%/0.45% SOD CHL 1,000 ML 200 ML IV CONT ×2 (15:45→21:35)
[2023-04-04] MEDS: METOCLOPRAMIDE HCL INJ 10 MG/2 ML VIAL IV PUSH (17:08)
[2023-04-04] MEDS: FAMOTIDINE 20 MG/2 ML VIAL IV PUSH (20:22)
[2023-04-04 21:11] VITALS: BP 103/61; PULSE 85; RESP 18; TEMP 37; O2SAT 100
[2023-04-05] MEDS: ONDANSETRON INJ 4 MG/2 ML VIAL IV PUSH ×2 (02:32→08:18)
[2023-04-05] MEDS: DEXTROSE 5%/0.45% SOD CHL 1,000 ML 200 ML IV CONT ×2 (02:32→07:41)
[2023-04-05] MEDS: METOCLOPRAMIDE HCL INJ 10 MG/2 ML VIAL IV PUSH ×2 (05:44)
[2023-04-05 06:00] VITALS: BP 100/60; PULSE 89; RESP 18; TEMP 36.9; O2SAT 99
[2023-04-05] MEDS: FAMOTIDINE 20 MG/2 ML VIAL IV PUSH (08:18)
--- NOTE | 2023-04-05 10:09 | PM.IMHP ---
H&P: HPI History of Present Illness Date/Time: 04/04/23 17:20 Chief Complaint: Vomiting Narrative: 22 y/o G1 at 15 1/7 weeks gestation with a carrion IUP. She was feeling fine until a few days ago. She had sudden onset of nausea, vomiting, and diarrhea. No fevers. Nobody sick at home. Was seen in ED and it was thought best to admit her to the hospital for IVF and antiemetic therapy. I was notified at 1330 today that she was in the hospital. Review of Systems Review of Systems: All systems reviewed & are unremarkable except as noted in HPI and below PMFSH Past Medical History Medical History Anxiety Depression Morbid obesity with BMI of 40.0-44.9, adult Surgical History Surgical History H/O wisdom tooth extraction Hx laparoscopic cholecystectomy 11/13/21 Family History Family History Other Diabetes mellitus Heart disease Hypertension Social History Social History Smoking status: Former smoker Tobacco type: e-cigarettes/vaping Alcohol intake: former Drinks per week: 5 Alcohol use details: Occasionally Substance use: former Substance use type: marijuana Do You Feel Safe in your Home?: Yes Lack of Transportation: No Lack of Food: Never True Current Housing: I Have Housing Concerned About Future Housing: No Difficulty Paying Gas/Electric Bills: No Difficulty Paying for Meds: No Currently Unemployed: No Education: High School Diploma/GED Difficulty w/ Childcare or Family Care: No Living arrangements: with roommate(s) Spiritual care concerns: No Meds Home Medications and Allergies Home Medications Medication Instructions Recorded Confirmed Type Classic 1 tablet PO DAILY 04/03/23 04/03/23 History famotidine 20 mg tablet (Pepcid) 20 mg PO BID #60 tabs 04/05/23 Rx ondansetron HCl 4 mg tablet 4 mg PO Q4H PRN Nausea And 04/05/23 Rx Vomiting #20 tabs promethazine 12.5 mg tablet 12.5 mg PO Q6H PRN nausea and 04/05/23 Rx vomiting #30 tabs Allergies Allergy/AdvReac Type Severity Reaction Status Date / Time No Known Allergies Allergy Verified 06/03/22 12:58 Vital Signs Vital Signs - 24 hr 04/04/23 14:00 04/04/23 21:11 04/05/23 06:00 Temperature 36.4 C L 37.0 C 36.9 C Pulse Rate 78 85 89 Respiratory Rate 20 18 18 Blood Pressure 100/62 103/61 100/60 Pulse Oximetry 100 100 99 Oxygen Delivery 04/05/23 08:20 Temperature Pulse Rate Respiratory Rate Blood Pressure Pulse Oximetry Oxygen Delivery Room Air Exam Const: Orientation/consciousness: patient oriented x3 Other: Well-developed, well-nourished female in no acute distress. Neck: Thyroid: thyroid normal Lymphatic: no lymphadenopathy noted (in neck, axilla or inguinal nodes) Resp: Effort & Inspection: normal respiratory effort Auscultation: clear to auscultation bilaterally Cardio: Rate: regular rate Rhythm: regular rhythm Heart sounds: S1 normal heart sound present and S2 normal heart sound present GI: Other: ABD: Soft, nontender, nondistended. Obese. Uterine fundus palpable above the pubic symphysis. No guarding or rebound tenderness. No hepatosplenomegaly. : General: Yes no CVA tenderness Other: Deferred. Back/Spine/Pelvis: Back: no CVA tenderness Skin: General skin exam: normal color and no rashes or lesions noted Neuro: General: patient oriented x3 Extrem: Other: Extremities: nontender with no edema Psych: Mental Status: mental status grossly normal Affect: normal affect Assessment and Plan Assessment and plan (1) Viral gastroenteritis: Code(s): A08.4 - Viral intestinal infection, unspecified Status: Acute Assessment and Plan: A: IUP at 15 1/7 weeks gestation
--- NOTE | 2023-04-05 10:10 | PM.OBPNVD ---
OB - PN: Subj Subjective Date/time seen: 04/05/23 10:10 Narrative: Nausea much better. She says the Reglan made her agitated yesterday. Would like to go home. OB - PN: Obj Data Labs 04/03/23 17:20 04/03/23 17:20 OB - PN A/P Plan Comments: A: Gastroenteritis complicating , clinically better after IV hydration and antiemetics. Also being covered for a possible UTI, culture still pending. P: Home on Zofran, add Phenergan as needed. Imodium for diarrhea OK. F/u next week as scheduled in office. Exam Narrative: AVSS I/O OK ABD soft, nontender, gravid. EXT nontender
--- NOTE | 2023-04-05 10:23 | PM.DS ---
DS: Admitting Diagnosis Discharge Date 04/05/23 Admitting Diagnosis IUP at 15 2/7 weeks Gastroenteritis, likely viral DS: Discharge Diagnosis Discharge Diagnosis (1) : Code(s): Z34.90 - Encounter for supervision of normal , unspecified, unspecified trimester Status: Acute (2) Viral gastroenteritis: Code(s): A08.4 - Viral intestinal infection, unspecified Status: Acute DS: Summary Hospital Course Hospital Course: Admitted for IVF and antiemetic therapy. Feels better on 04/05, wanting to go home. Time Spent with Patient Time attestation: Total time spent providing and/or coordinating discharge services: Discharge Plan Discharge Attending physician on discharge: Jorge Alberto Farrell Consulting providers: Jorge Alberto Farrell Discharging Clinician: Jorge Alberto Farrell Patient Disposition: Home, Self-Care Activity: as tolerated Diet: as tolerated Discharge Instructions: Call or return if temperature above 100.4? F, increased abdominal pain, vaginal bleeding or any new problems. Patient Instructions: Antibiotic Form Stand Alone Forms: General Discharge Information Follow-up/Referrals: Jorge Alberto Farrell MD [Physician] - Keep Reg. Scheduled Appt. Discharge Medications: New famotidine [Pepcid] 20 mg tablet 20 mg PO BID Qty: 60 1RF promethazine 12.5 mg tablet 12.5 mg PO Q6H PRN (Reason: nausea and vomiting) Qty: 30 1RF Continued Classic 1 tablet PO DAILY Changed ondansetron HCl 4 mg tablet 4 mg PO Q4H PRN (Reason: Nausea And Vomiting) Qty: 20 1RF Date of admission: 04/03/23 21:18 Primary Care Provider: UNKNOWN,DOCTOR Admitting Provider: Ty Willett Attending physician on admission: Ty Willett Condition: Stable
== END 2023-04-05 12:15 | disposition home or self-care (01) ==
LOC: ANHED 22:10 → ANH3MEDSUR 04-04 13:17
PROVIDERS: Admitting Provider Obstetrics & Gynecology; Emergency Provider Emergency Medicine; Visit Provider Obstetrics & Gynecology
DX: O99.612 Diseases of the digestive system complicating pregnancy, second trimester (principal); A08.4 Viral intestinal infection, unspecified; K92.89 Other specified diseases of the digestive system; O21.0 Mild hyperemesis gravidarum; O23.42 Unspecified infection of urinary tract in pregnancy, second trimester; O99.342 Other mental disorders complicating pregnancy, second trimester; F41.9 Anxiety disorder, unspecified; F32.A Depression, unspecified; Z20.822 Contact with and (suspected) exposure to COVID-19; O99.332 Smoking (tobacco) complicating pregnancy, second trimester; F17.290 Nicotine dependence, other tobacco product, uncomplicated; O99.322 Drug use complicating pregnancy, second trimester; F12.90 Cannabis use, unspecified, uncomplicated; Z3A.14 14 weeks gestation of pregnancy; Z79.84 Long term (current) use of oral hypoglycemic drugs; Z79.899 Other long term (current) drug therapy
CPT/HCPCS: 36415; 80053; 81001; 85025; 87086; 87637; 96361; 96365; 96374; 96375; 96376; 99285; G0379; J0696; J2405; J2765; J7030